=== PATIENT | female | born 1990 | race Caucasian/White ===

== ENCOUNTER 2020-04-20 13:02 | Outpatient (CLI) | payer BC, SELFPAY ==
--- NOTE | ~2020-04-20 | XR_ITS ---
XR abdomen/kub 1V DATE: 04/20/2020 13:26 INDICATION: Right lower quadrant abdominal pain. Constipation. TECHNIQUE: AP projection, 2 views COMPARISON: None FINDINGS: No bowel obstruction is evident. The psoas shadows are intact. No visceromegaly or signific ant abnormal calcification is noted. Several calcified pelvic phleboliths are noted. No apparent calc ified appendicolith. Included skeletal structures are unremarkable. IMPRESSION: Nonspecific abdomen Reviewed, dictated and finalized at [facility]. Reviewed, dictated and finalized at [facility]. IMPRESSION: Nonspecific abdomen
== END 2020-04-20 13:03 | disposition home or self-care (01) ==
LOC: ANHIMG 13:10
PROVIDERS: PCP Nurse Practitioner Family; Visit Provider Nurse Practitioner Family
DX: K59.00 Constipation, unspecified (principal)
CPT/HCPCS: 74018

== ENCOUNTER 2020-12-19 07:26 | Outpatient (CLI) | payer BC, SELFPAY ==
[2020-12-19 08:50] LABS: Hematocrit 32.8 % (37.0-47.0); Hemoglobin 10.7 g/dL (12.0-15.0)
[2020-12-19 09:00] LABS: Glucose 1 Hour PP 50gm Dose 152 mg/dL
[2020-12-19 09:41] LABS: HIV 1/2 Ab P24 Ag Result Negative (Negative)
== END 2020-12-19 07:27 | disposition home or self-care (01) ==
PROVIDERS: PCP Nurse Practitioner Family; Visit Provider Obstetrics & Gynecology
DX: Z34.02 Encounter for supervision of normal first pregnancy, second trimester (principal); Z3A.00 Weeks of gestation of pregnancy not specified
CPT/HCPCS: 36415; 82947; 85014; 85018; 86703; G0432

== ENCOUNTER 2020-12-26 07:04 | Outpatient (CLI) | payer BC, SELFPAY ==
[2020-12-26 07:56] LABS: Glucose Fasting Gestational 86 mg/dL (>/=95)
[2020-12-26 09:29] LABS: Glucose 1 Hour Gest 143 mg/dL (>/=180)
[2020-12-26 10:32] LABS: Glucose 2 Hour Gest 156 mg/dL (>/= 155)
[2020-12-26 11:28] LABS: Glucose 3 Hour Gest 154 mg/dL (>/=140)
== END 2020-12-26 07:05 | disposition home or self-care (01) ==
PROVIDERS: PCP Nurse Practitioner Family; Visit Provider Obstetrics & Gynecology
DX: R73.09 Other abnormal glucose (principal)
CPT/HCPCS: 36415; 82951; 82952

== ENCOUNTER 2021-02-15 17:11 | Inpatient (IN) | payer BC, SELFPAY ==
[2021-02-15] VITALS (87 sets, daily range): BP systolic 96–136; BP diastolic 53–94; PULSE 28–147; RESP 18; TEMP 36.8–37.2; O2SAT 70–100; BMI 30.6
--- NOTE | 2021-02-15 17:11 | LDADM ---
This patient, Mavis Coronado, was admitted to Labor/Delivery/Recovery 107 on 02/15/21 at 17:11. Plans for labor, pain management and were discussed with patient. Patient/family oriented to hospital policies and general routines including ID bracelet, bed and alarms, visiting hours, pain management, procedures, bathroom and other care routines, personal items, smoking policy, room service/diet and guest tray routines, infant security routines, and visiting hours. Patient/Family are encouraged to report perceived risks to care and to ask questions if they do not understand what they are told or what they should do. See OBIX for further documentation.
[2021-02-15 18:21] LABS: Basophils Percent Auto 0.3 % (0.2-1.2); Eosinophils Absolute Auto 0.1 K/mm3 (0-0.3); Eosinophils Percent Auto 0.8 % (0-4.4); Hematocrit 37.9 % (37.0-47.0); Hemoglobin 12.1 g/dL (12.0-15.0); Immature Granulocyte Absolute 0.11 K/mm3 (0.00-0.031); Immature Granulocyte Percent A 1.2 % (0-0.5); Lymphocytes Absolute Auto 1.91 K/mm3 (0.9-3.2); Lymphocytes Percent Auto 20.9 % (18.3-44.2); Mean Corpuscular HGB Conc 31.9 g/dl (32-36); Mean Corpuscular Hemoglobin 29.4 pg (26-34); Mean Platelet Volume 10.6 fl (7.4-10.4); Monocytes Absolute Auto 0.6 K/mm3 (0.1-0.6); Monocytes Percent Auto 6.3 % (2.6-8.5); Neutrophils Absolute Auto 6.4 K/mm3 (1.3-6.7); Neutrophils Percent Auto 70.5 % (45.5-73.1); Platelet Count Result 187 k/mm3 (150-375); Red Blood Count 4.12 M/mm3 (4.2-5.4); Red Cell Distribution Width 15.3 % (11.5-14.5); White Blood Count 9.1 K/mm3 (4.5-10.0)
[2021-02-15] MEDS: LACTATED RINGERS 1,000 ML 125 ML IV CONT ×2 (19:35→20:30)
--- NOTE | 2021-02-15 20:07 | WPDANESEPP ---
Anes - Eval Pre Procedure Procedure: Labor epidural Date/Time: 02/15/21 20:07 Surgeon: naseem Preop Diagnosis: Abd pain with contractions Pre Op Diagnosis: leaking Patient Data Age: 31 Gender: F Height: 5 ft 2 in Weight: 76 kg Last Vital Signs Temp 98.6 F 02/15/21 17:49 Pulse 81 02/15/21 20:00 BP 103/60 02/15/21 20:00 Allergies Allergy/AdvReac Type Severity Reaction Status Date / Time Penicillins Allergy Unknown Verified 02/15/21 17:59 Sulfa (Sulfonamide Allergy Rash Verified 02/15/21 19:07 Antibiotics) Home Medications Medication Instructions Recorded Confirmed Type ferrous sulfate [Iron (ferrous 325 mg PO DAILY 02/15/21 02/15/21 History sulfate)] sertraline 100 mg PO DAILY 02/15/21 02/15/21 History Laboratory Tests 02/15/21 02/15/21 02/15/21 18:14 18:14 18:14 WBC 9.1 K/mm3 K/mm3 (4.5-10.0) RBC 4.12 M/mm3 L M/mm3 (4.2-5.4) Hgb 12.1 g/dL g/dL (12.0-15.0) Hct 37.9 % % (37.0-47.0) MCV 92.0 fl fl (80-100) MCH 29.4 pg pg (26-34) MCHC 31.9 g/dl L g/dl (32-36) RDW 15.3 % H % (11.5-14.5) Plt Count 187 k/mm3 k/mm3 (150-375) MPV 10.6 fl H fl (7.4-10.4) Immature Gran % (Auto) 1.2 % H % (0-0.5) Neut % (Auto) 70.5 % % (45.5-73.1) Lymph % (Auto) 20.9 % % (18.3-44.2) [place] % (Auto) 6.3 % % (2.6-8.5) Eos % (Auto) 0.8 % % (0-4.4) Baso % (Auto) 0.3 % % (0.2-1.2) Lymph # (Auto) 1.91 K/mm3 K/mm3 (0.9-3.2) [place] # (Auto) 0.6 K/mm3 K/mm3 (0.1-0.6) Eos # (Auto) 0.1 K/mm3 K/mm3 (0-0.3) Baso # (Auto) 0.0 K/mm3 K/mm3 (0.0-0.1) Abs Immat Gran (auto) 0.11 K/mm3 H K/mm3 (0.00-0.031) Absolute Neuts (auto) 6.4 K/mm3 K/mm3 (1.3-6.7) Absolute Nucleated RBC 0.0 K/mm3 K/mm3 (0.0-0.012) Nucleated RBC % 0.0 % % (0.0-0.2) RPR Pending Blood Type O Positive Antibody Screen Negative Patient hx anesthesia problems: none Family hx anesthesia problems: none COUNT INCLUDES [facility] Past Medical History Medical History Anemia Anxiety Over weight and not yet delivered Social History Social History Smoking status: Never smoker Substance use: never Spiritual care concerns: No Exam Day of Procedure 02/15/21 20:07 Patient weight: overweight Airway: Mallampati scale class II Neurological: alert and oriented
--- NOTE | 2021-02-15 22:52 | PM.IMHP ---
H&P: HPI History of Present Illness Date/Time: 02/15/21 22:52 31yo at 37w3d presented to L&D with leaking of fluid. SROM was confirmed on exam on L&D triage. She is comfortable with her epidural. No issues, concerns. Chief Complaint: Leaking of fluid Review of Systems Constitutional: Constitutional: Reports no additional constitutional complaints Eyes: Eyes: Reports no additional eye complaints ENT: Reports system reviewed and no additional complaints, except as documented Cardiovascular: Cardiovascular: Reports no additional cardiovascular complaints Respiratory: Respiratory: Reports no additional respiratory complaints Gastrointestinal: Gastrointestinal: Reports no additional gastrointestinal complaints Genitourinary: Genitourinary: Reports no additional female genitourinary complaints Musculoskeletal: Musculoskeletal: Reports no additional musculoskeletal complaints Integumentary/Breasts: Skin/Breast: Reports system reviewed and no additional complaints, except as docu Neurologic: Reports system reviewed and no additional complaints, except as documented Psychiatric: Psychiatric: Reports no additional psychiatric complaints Endocrine: Endocrine: Reports no additional endocrine complaints Hematologic/Lymphatic: Hematologic/Lymphatic: Reports no additional hematologic/lymphatic complaints Allergic/Immunologic: Allergic/Immunologic: Reports no additional allergic/immunologic complaints [facility] Past Medical History Medical History Anemia Anxiety Over weight and not yet delivered Social History Social History Smoking status: Never smoker Substance use: never Spiritual care concerns: No Meds Home Medications and Allergies Home Medications Medication Instructions Recorded Confirmed Type ferrous sulfate [Iron (ferrous 325 mg PO DAILY 02/15/21 02/15/21 History sulfate)] sertraline 100 mg PO DAILY 02/15/21 02/15/21 History Allergies Allergy/AdvReac Type Severity Reaction Status Date / Time Penicillins Allergy Unknown Verified 02/15/21 17:59 Sulfa (Sulfonamide Allergy Rash Verified 02/15/21 19:07 Antibiotics) Vital Signs Vital Signs - 24 hr 02/15/21 17:45 02/15/21 17:49 02/15/21 18:00 Temperature 37.0 C Pulse Rate 80 87 Blood Pressure 116/67 118/80 Pulse Oximetry 02/15/21 18:15 02/15/21 18:30 02/15/21 19:00 Temperature Pulse Rate 82 79 74 Blood Pressure 117/74 118/72 120/66 Pulse Oximetry 02/15/21 19:15 02/15/21 19:30 02/15/21 19:45 Temperature Pulse Rate 74 81 72 Blood Pressure 123/74 123/76 117/75 Pulse Oximetry 02/15/21 20:00 02/15/21 20:08 02/15/21 20:10 Temperature Pulse Rate 81 Blood Pressure 103/60 Pulse Oximetry 100 99 02/15/21 20:11 02/15/21 20:13 02/15/21 20:16 Temperature Pulse Rate 78 87 Blood Pressure 121/75 123/76 Pulse Oximetry 100 100 02/15/21 20:18 02/15/21 20:21 02/15/21 20:23 Temperature Pulse Rate 83 71 Blood Pressure 104/59 L 136/94 H Pulse Oximetry 100 100 02/15/21 20:24 02/15/21 20:27 02/15/21 20:28 Temperature 36.8 C Pulse Rate 80 69 Blood Pressure 122/74 109/76 Pulse Oximetry 100 02/15/21 20:30 02/15/21 20:33 02/15/21 20:36 Temperature Pulse Rate 72 65 68 Blood Pressure 111/62 112/60 110/66 Pulse Oximetry 100 02/15/21 20:38 02/15/21 20:39 02/15/21 20:42 Temperature Pulse Rate 78 72 Blood Pressure 109/61 107/63 Pulse Oximetry 100 02/15/21 20:43 02/15/21 20:46 02/15/21 20:48 Temperature Pulse Rate 65 60 Blood Pressure 114/60 107/56 L Pulse Oximetry 100 100 02/15/21 20:51 02/15/21 20:53 02/15/21 20:54 Temperature Pulse Rate 62 75 Blood Pressure 111/61 97/71 L Pulse Oximetry 100 02/15/21 20:58 02/15/21 21:00 02/15/21 21:03 Temperature Pulse Rate 77 72 Blood Pressure 98/81 L 101/
--- NOTE | 2021-02-15 22:59 | WPDHPUPDATE1 ---
History and Physical Update Update Date/Time: 02/15/21 22:59 History and Physical has been reviewed, including an updated exam of the patient. There are NO changes in the patient's condition. Risks, benefits, and alternatives have been discussed and questions answered. Patient agrees to proceed with procedure.
[2021-02-15] MEDS: OXYTOCIN 30 UNITS/NS 500 ML 30 UNITS/500 ML BAG 999 UNITS IV CONT (23:13)
--- NOTE | 2021-02-15 23:25 | PM.OBPRVD ---
OB - Delivery Note Procedure Delivery date: 02/15/21 Procedure: Normal spontaneous vaginal delivery Intrapartal events: None Induction method: none Delivery monitor: external FHT and external uterine Route of delivery: Laceration Description: None Specimen: No Quantitative Blood Loss (ml): 200 Anesthesia type: Epidural Narrative: Once she was noted to be complete and ready to push, the labor bed was broken down and legs were placed in stirrups for support. With contractions and maternal efforts, the presented in JODIE position. The head was delivered. Checked for nuchal cord, nuchal cord x1 noted at easily reduced at the perineum. Gentle downward traction was applied and the anterior shoulder delivered without issues, followed by the posterior shoulder and rest of the body. was vigorous and crying, so delayed cord clamping of approximately 1 minute was performed. The cord was clamped and cut. Cord gasses collected. Placenta was delivered spontaneously with gentle cord traction. IV oxytocin administered and fundal massage applied. Exam was performed to identify any lacerations. No lacerations were noted. Good hemostasis noted. Patient tolerated the procedure well. All instrument and sponge counts were correct at the end of the procedure. Baby Date of : 02/15/21 Time of : 23:09 Weeks of gestation at delivery: 37 Infant gender: Female Weight (pounds): 7 Weight (ounces): 1 presentation: vertex position: Left Occiput Anterior Placenta delivery description: Spontaneous cord vessel description: 3 Vessels, Nuchal Cord (x1), Reduced and Clamped/Cut score one minute: 9 score five minutes: 9
[2021-02-15] MEDS: OXYTOCIN 30 UNITS/NS 500 ML 30 UNITS/500 ML BAG 125 UNITS IV CONT (23:46)
[2021-02-16] VITALS (23 sets, daily range): BP systolic 103–120; BP diastolic 50–72; PULSE 60–140; RESP 14–18; TEMP 36.4–36.9; O2SAT 61–100
[2021-02-16] MEDS: WITCH HAZEL 40 PADS 1 PAD TOPICAL (01:14)
[2021-02-16] MEDS: BENZOCAINE 20% AER SPR (*SP) 56 GM CAN 1 SPRAY TOPICAL (01:14)
[2021-02-16 05:00] LABS: Hematocrit 31.8 % (37.0-47.0); Hemoglobin 10.2 g/dL (12.0-15.0)
[2021-02-16] MEDS: MULTIVIT/MIN/PREN/FOL AC/IRON TABLET 1 TAB PO (07:43)
[2021-02-16] MEDS: SERTRALINE HCL 50 MG TABLET 100 MG PO (07:43)
[2021-02-16] MEDS: IBUPROFEN 600 MG TABLET PO ×2 (07:44→16:50)
--- NOTE | 2021-02-16 09:44 | PM.OBPNVD ---
OB - PN: Subj Subjective Date/time seen: 02/16/21 09:44 31yo s/p on 02/15. Doing well this morning. Having some cramping and back pain from epidural. No headaches. Lochia is moderate. Breast feeding. Tolerating diet. OB - PN: Obj Data Labs CBC & Chem 7: 02/16/21 04:34 Labs: Laboratory Results - last 24 hr 02/15/21 02/15/21 02/16/21 18:14 18:14 04:34 WBC 9.1 RBC 4.12 L Hgb 12.1 10.2 L Hct 37.9 31.8 L MCV 92.0 MCH 29.4 MCHC 31.9 L RDW 15.3 H Plt Count 187 MPV 10.6 H Immature Gran % (Auto) 1.2 H Neut % (Auto) 70.5 Lymph % (Auto) 20.9 [place] % (Auto) 6.3 Eos % (Auto) 0.8 Baso % (Auto) 0.3 Lymph # (Auto) 1.91 [place] # (Auto) 0.6 Eos # (Auto) 0.1 Baso # (Auto) 0.0 Abs Immat Gran (auto) 0.11 H Absolute Neuts (auto) 6.4 Absolute Nucleated RBC 0.0 Nucleated RBC % 0.0 Blood Type O Positive Antibody Screen Negative OB - PN A/P Assessment and Plan (1) (normal spontaneous vaginal delivery): Code(s): O80 - Encounter for full-term uncomplicated delivery Status: Acute Assessment and Plan: Routine post care Pain management Ambulate DC home tomorrow 01/17. Time Spent With Patient Time: Total time spent is greater than 50% in coordination of care (as documented) at patient's floor/unit and/or counseling patient: Exam Const: General: cooperative, healthy appearing, comfortable, no acute distress, well developed, alert, awake and Physically active; No acute distress Orientation/consciousness: oriented to person, oriented to place, oriented to time and patient oriented x3 HENMT: Head: normocephalic and atraumatic Resp: Effort & Inspection: normal respiratory effort, able to speak in complete sentences, normal respiratory pattern, no audible wheezes, no cough and not labored Cardio: Rate: regular rate Neuro: General: oriented to person, oriented to place, oriented to time and patient oriented x3 Psych: Appearance: grossly normal Mental Status: mental status grossly normal Speech and movement: Normal speech and movement present Affect: normal affect Attitude: cooperative Thought process: Normal thought process present Insight: Good insight present (Psych) Judgement: Good judgement present (Psych)
[2021-02-17 07:17] LABS: Rapid Plasma Reagin Non-Reactive (NonReactive)
[2021-02-17 07:50] VITALS: BP 113/70; PULSE 58; RESP 16; TEMP 36.8; O2SAT 100
[2021-02-17] MEDS: IBUPROFEN 600 MG TABLET PO (09:04)
[2021-02-17] MEDS: MULTIVIT/MIN/PREN/FOL AC/IRON TABLET 1 TAB PO (09:04)
[2021-02-17] MEDS: SERTRALINE HCL 50 MG TABLET 100 MG PO (09:05)
--- NOTE | 2021-02-17 09:05 | PC.NURSE ---
Mother called out for assist with feeding. Consulted with patient, mother reports has fed well since . Mother has slight nipple discomfort with latch during first part of the feeding that quickly resolves. Reviewed nipple care of lanolin, warm compresses several times per day and gel pads as needed. Mother reports she began supplementing during the night due to not acting satisfied after 20-30 minutes of . Mother states she has anxiety with , due to first child had significant weight loss and jaundice at one week. Mother has concerns of this repeating with this child. Suggested mother continue to offer 15mls supplement after feedings until her milk is in and may consider pumping for 5 minutes after each feeding to assist with stimulating milk supply. Reviewed feeding cues, frequencies, duration of feedings, feeding elimination flow sheet, and signs of adequate intake. Demonstrated stimulation techniques to wake infant for feeding. Assisted with infant to breast. Reviewed positioning/alignment in football, holding breast in C hold and guided asymmetrical latch on. Infant was able to latch within a few attempts. nursed eagerly, with steady draws and frequent swallowing noted. Reviewed signs of a correct latch, effective nursing and suck swallow ratio. Infant was able to maintain latch. Mother reported tenderness at times, had slipped to shallow latch. Demonstrated how to adjust latch more deeply while feeding. Mother quickly reports she can feel is latched more deeply and has minimal tenderness. Suggested to stimulate infant while feeding to keep infant awake and nursing effectively for increased stimulation and increased intake. Mother plans on discharge later this day. Mother is able to independently latch with appropriate positioning/alignment. She denies any nipple discomfort, is feeding as required and waking to feed if needed. has had at least 8 effective feedings in the past 24 hours, and is currently meeting outcomes for weight, output, jaundice and feeding frequencies. Mother states she feels confident to continue effective at home. Reviewed transition to breast milk, signs of adequate intake, and engorgement/relief. Instructed to call ICP if intake/output less than required. Reviewed regular medications mother is taking. Information provided per Jina. Reviewed community resources on the [facility] website and in the Mom/Baby guide. Information on outpatient services provided. Mother has no further questions at this time.
[2021-02-17 09:30] VITALS: PULSE 58; RESP 16; O2SAT 100
[2021-02-18 07:50] VITALS: BP 119/75; PULSE 61; RESP 16; TEMP 36.4; O2SAT 100
--- NOTE | 2021-02-18 12:00 | PM.OBDSVD ---
DS: Admitting Diagnosis Admitting Diagnosis Admitting Diagnosis: Labor DS: Discharge Diagnosis Discharge Diagnosis (1) (normal spontaneous vaginal delivery): Code(s): O80 - Encounter for full-term uncomplicated delivery Status: Acute OB - DS: Summary OB Procedures : None OB Procedures Intrapartum: Spontaneous Vag Delivery OB Procedures: : None Time Spent with Patient Time attestation: Total time spent providing and/or coordinating discharge services: Exam Const: General: cooperative, healthy appearing, comfortable, no acute distress, well developed, alert, awake and Physically active; No acute distress Orientation/consciousness: oriented to person, oriented to place, oriented to time and patient oriented x3 HENMT: Head: normocephalic and atraumatic Resp: Effort & Inspection: normal respiratory effort, able to speak in complete sentences, normal respiratory pattern, no audible wheezes, no cough and not labored Cardio: Rate: regular rate Neuro: General: oriented to person, oriented to place, oriented to time and patient oriented x3 Psych: Appearance: grossly normal Mental Status: mental status grossly normal Speech and movement: Normal speech and movement present Affect: normal affect Attitude: cooperative Thought process: Normal thought process present Insight: Good insight present (Psych) Judgement: Good judgement present (Psych) Discharge Plan Discharge Attending physician on discharge: Braydon Ansari Discharging Clinician: Braydon Ansari Patient Disposition: Home, Self-Care Activity: may shower, as tolerated and pelvic rest Diet: regular Discharge Instructions: Education: Mom and Baby Guide Given to: Mother Follow-Up: Call your delivering provider's office for an appointment to be seen in: 4 Weeks Mom and baby should come to the [facility] for the follow-up appointment. Appointment Date/Time: Thursday, February 18, 2021 at 8:00 am What to expect at your follow-up visit: Blood Pressure Check Physical Assessment Call [phone] if you are unable to keep your appointment time. BREAST CARE: * Wear a snug supportive bra. * For engorgement discomfort: Breast Feeding: * Apply warm moist washcloths * Express milk as needed to relieve engorgement * Wear loose clothing * For sore nipples: * Identify correct latch-on * Apply warm moist washcloths before and after nursing * Air dry nipples after nursing * May apply Lansin[place] cream to nipples PERINEAL CARE: * Until bleeding stops, use your ed bottle after urinating * Change your pad frequently throughout the day * You may take sitz baths several times a day (fill your bathtub with warm water and soak for 20 minutes.) Do NOT bathe in the water * No tub baths until seen by your physician - You may shower ACTIVITY: * Rest as much as possible. * Do not exercise or lift anything heavier than your baby (such as laundry or other children.) * Avoid stairs or driving as much as possible. * Do not put anything into the vagina. No douching, tampons, or sexual activity until seen by physician. NOTIFY PHYSICIAN IF YOU HAVE ANY QUESTIONS OR IF ANY OF THE FOLLOWING SYMPTOMS OCCUR: * If your vaginal area becomes red, swollen, or more painful than what you have experienced in the hospital. * If your vaginal bleeding becomes foul smelling. * If your vaginal bleeding becomes more heavy than a period or if your bleeding changes from pink to bright red. However, you may pass an occasional walnut-sized clot once or twice for the first week . * If you experience a sharp, shooting pain in your calves. * If you discover a hard, reddened area on your breast or if you experience flu-like symptoms. DIET: * Eat regular, well-balanced meals. * Drink plenty of fluids daily. If , drink to thirst. Leobardo
== END 2021-02-17 12:15 | disposition home or self-care (01) | DRG 807 ==
LOC: ANHLDR 17:48 → ANHOB2 02-16 09:49 → ANHLDR 02-18 08:08 → ANHOB2 02-18 08:08
PROVIDERS: Admitting Provider Obstetrics & Gynecology; PCP Nurse Practitioner Family; Visit Provider Obstetrics & Gynecology
DX: O99.02 Anemia complicating childbirth (principal); Z37.0 Single live birth; Z3A.37 37 weeks gestation of pregnancy; D64.9 Anemia, unspecified; O99.344 Other mental disorders complicating childbirth; F41.9 Anxiety disorder, unspecified; F32.9 Major depressive disorder, single episode, unspecified; O69.81X0 Labor and delivery complicated by cord around neck, without compression, not applicable or unspecified
CPT/HCPCS: 36415; 85014; 85018; 85025; 86592; 86850; 86900; 86901; A9270; J2590; J2795; J7120